=== PATIENT | female | born 1980 | race African-American/Black ===

== ENCOUNTER 2016-03-24 17:56 | Emergency (ER) | payer SELFPAY ==
[2016-03-24] MEDS ORDERED: ONDANSETRON 4 MG TAB.RAPDIS PO ONE (18:22)
--- NOTE | 2016-03-24 18:22 | ER Document Report ---
ED Medical Screen (RME) - General Chief Complaint: Abdominal Pain Stated Complaint: ABDOMINAL PAIN,VOMITING,DIARRHEA Time seen by provider: 18:21 Mode of Arrival: Ambulatory Information source: Patient Notes: 35-year-old female presents to ED for nausea vomiting and diarrhea or since this morning. She states just the smell of food makes her sick. She is sipping on a Sprite and keeping that down. Last menstrual period 03/15/2016 I have greeted and performed a rapid initial assessment of this patient. A comprehensive ED assessment and evaluation of the patient, analysis of test results and completion of medical decision making process will be conducted by an additional ED providers. TRAVEL OUTSIDE OF THE [place] IN LAST 30 DAYS: No - Related Data Allergies/Adverse Reactions: Sulfa (Sulfonamide Antibiotics) Adverse Reaction (Unknown, Verified 02/20/16 13: 48) Past Medical History Pulmonary Medical History: Reports: Hx Asthma Psychiatric Medical History: Reports: Hx Depression Past Surgical History: Reports: Hx Abdominal Surgery - hernia repair, Hx Umbilical Hernia - Immunizations Immunizations up to date: Yes Hx Diphtheria, Pertussis, Tetanus Vaccination: Yes Physical Exam - Vital signs Vitals: Temp Pulse Resp BP Pulse Ox 98.8 F 90 18 145/89 H 100 03/24/16 18:17 03/24/16 18:17 03/24/16 18:17 03/24/16 18:17 03/24/16 18:17 Course - Vital Signs Vital signs: Temp Pulse Resp BP Pulse Ox 98.8 F 90 18 145/89 H 100 03/24/16 18:17 03/24/16 18:17 03/24/16 18:17 03/24/16 18:17 03/24/16 18:17
[2016-03-24 19:51] LABS: ABSOLUTE BASOPHILS # (AUTO) 0.1 10^3/uL (0.0-0.2); ABSOLUTE EOSINOPHILS # (AUTO) 0.1 10^3/uL (0.0-0.6); ABSOLUTE MONOCYTES (AUTO) 0.9 10^3/uL (0.1-1.4); ABSOLUTE NEUT (AUTO) 9.8 10^3/uL (1.7-8.2); BASOPHILS % (AUTO) 0.4 % (0-2); EOSINOPHILS % (AUTO) 0.5 % (0-6); HEMATOCRIT 40.9 % (36.0-47.0); HEMOGLOBIN 12.4 g/dL (12.0-15.5); HGB HCT DIFFERENCE -3.7; LYMPHOCYTES % (AUTO) 21.8 % (13-45); MEAN CORPUSCULAR HEMOGLOBIN 23.1 pg (27.0-33.4); MEAN CORPUSCULAR HGB CONC 30.2 g/dL (32.0-36.0); MEAN CORPUSCULAR VOLUME 77 fl (80-97); MONOCYTES % (AUTO) 6.2 % (3-13); RED BLOOD COUNT 5.35 10^6/uL (3.72-5.28); RED CELL DISTRIBUTION WIDTH 14.1 % (11.5-14.0); SEGMENTED NEUTROPHILS % (AUTO) 71.1 % (42-78); WHITE BLOOD COUNT 13.7 10^3/uL (4.0-10.5)
[2016-03-24 19:58] LABS: APPEARANCE,URINE SLIGHTLY-CLOUDY; BILIRUBIN,URINE NEGATIVE (NEGATIVE); GLUCOSE, URINE NEGATIVE (NEGATIVE); KETONES,URINE NEGATIVE (NEGATIVE); LEUKOCYTE ESTERASE,URINE SMALL (NEGATIVE); NITRITE,URINE NEGATIVE (NEGATIVE); PROTEIN,URINE 30 mg/dL (NEGATIVE); URINE SPECIFIC GRAVITY 1.026
[2016-03-24 20:15] LABS: ALANINE AMINOTRANSFERASE 40 U/L (9-52); ALBUMIN 4.7 g/dL (3.5-5.0); ALKALINE PHOSPHATASE 72 U/L (38-126); ANION GAP 13 (5-19); ASPARTATE AMINO TRANSFERASE 21 U/L (14-36); BILIRUBIN,TOTAL 0.9 mg/dL (0.2-1.3); BLOOD UREA NITROGEN 10 mg/dL (7-20); CALCIUM 9.8 mg/dL (8.4-10.2); CARBON DIOXIDE 25 mmol/L (22-30); CHLORIDE 104 mmol/L (98-107); CREATININE RESULT 0.78 mg/dL (0.52-1.25); GLUCOSE 106 mg/dL (75-110); SODIUM 141.5 mmol/L (137-145); TOTAL PROTEIN 7.9 g/dL (6.3-8.2)
[2016-03-24] MEDS ORDERED: HYDROCODONE/ACETAMINOPHEN 5-325 MG 6 TAB/DSPK PO PRN (21:50)
[2016-03-24] MEDS ORDERED: PROMETHAZINE HCL 25 MG TABLET PO ONE (21:50)
[2016-03-24 21:52] VITALS: BP 140/76
--- NOTE | 2016-03-24 21:53 | ER Document Report ---
ED GI/ - General Chief Complaint: Abdominal Pain Stated Complaint: ABDOMINAL PAIN,VOMITING,DIARRHEA Time seen by provider: 21:45 Mode of Arrival: Ambulatory Notes: Patient is a 35-year-old female that comes emergency department for chief complaint of nausea, vomiting, and diarrhea starting today. She states she has had diarrhea almost every 30 minutes. Patient states the Zofran from triage helped some but she still vomited, states that Zofran never helps her very much. She denies any specific areas of abdominal pain. She states she is worried she might be but she did have a cycle within the past 4 weeks. Patient has had an umbilical hernia repair, denies any other abdominal surgeries or medical problems. TRAVEL OUTSIDE OF THE [place] IN LAST 30 DAYS: No - Related Data Allergies/Adverse Reactions: Sulfa (Sulfonamide Antibiotics) Adverse Reaction (Unknown, Verified 02/20/16 13: 48) Past Medical History - General Information source: Patient - Social History Smoking Status: Current Every Day Smoker Frequency of alcohol use: None Drug Abuse: None Lives with: Family Family History: Arthritis, DM, Hypertension, Malignancy, Thyroid Disfunction Patient has suicidal ideation: No Patient has homicidal ideation: No Pulmonary Medical History: Reports: Hx Asthma Renal/ Medical History: Denies: Hx Peritoneal Dialysis Psychiatric Medical History: Reports: Hx Depression Past Surgical History: Reports: Hx Abdominal Surgery - hernia repair, Hx Umbilical Hernia - Immunizations Immunizations up to date: Yes Hx Diphtheria, Pertussis, Tetanus Vaccination: Yes Review of Systems - Review of Systems Constitutional: See HPI EENT: No symptoms reported Cardiovascular: No symptoms reported Respiratory: No symptoms reported Gastrointestinal: See HPI Genitourinary: No symptoms reported Female Genitourinary: No symptoms reported Musculoskeletal: No symptoms reported Skin: No symptoms reported Hematologic/Lymphatic: No symptoms reported Neurological/Psychological: No symptoms reported Physical Exam - Vital signs Vitals: Temp Pulse Resp BP Pulse Ox 98.8 F 90 18 145/89 H 100 03/24/16 18:17 03/24/16 18:17 03/24/16 18:17 03/24/16 18:17 03/24/16 18:17 Interpretation: Normal - General General appearance: Appears well, Alert In distress: None - HEENT Head: Normocephalic, Atraumatic Eyes: Normal Conjunctiva: Normal Extraocular movements intact: Yes Eyelashes: Normal Pupils: PERRL Ears: Normal External canal: Normal Tympanic membrane: Normal Sinus: Normal Nasal: Normal Mouth/Lips: Normal Mucous membranes: Normal Pharynx: Normal Neck: Normal - Respiratory Respiratory status: No respiratory distress Chest status: Nontender Breath sounds: Normal. No: Decreased air movement, Wheezing Chest palpation: Normal - Cardiovascular Rhythm: Regular. No: Tachycardia Heart sounds: Normal auscultation, S1 appreciated, S2 appreciated Murmur: No - Abdominal Inspection: Normal Distension: No distension Bowel sounds: Normal Tenderness: Tender - Very mild generalized abdominal tenderness, nonspecific, no guarding Organomegaly: No organomegaly - Back Back: Normal, Nontender. 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 Patient declines any further evaluation and workup. I feel this is appropriate, patient 's workup, symptoms, and examination are most consistent with a viral syndrome, no concerning vital signs or examination findings. Patient instructed to take the nausea medication, rehydrate, follow-up with primary care, and return if she worsens. Patient states understanding and agreement. - Vital Signs Vital signs: Temp Pulse Resp BP Pulse Ox 98.3 F 73 16 140/76 H 100 03/24/16 21:51 03/24/16 21:51 03/24/16 21:51 03/24/16 21:51 03/24/16 21:51 - Laboratory Result Diagrams: 03/24/16 19:35 03/24/16 19:35 Laboratory results interpreted by me: 03/24/16 03/24/16 19:35 19:35 WBC 13.7 H RBC 5.35 H MCV 77 L MCH 23.1 L MCHC 30.2 L RDW 14.1 H Absolute Neutrophils 9.8 H Urine Protein 30 H Urine Urobilinogen 2.0 H Ur Leukocyte Esterase SMALL H Discharge - Discharge Clinical Impression: Nausea vomiting and diarrhea Abdominal pain Qualifiers: Abdominal location: generalized Qualified Code(s): R10.84 - Generalized abdominal pain Condition: Stable Disposition: HOME, SELF-CARE Additional Instructions: Take Phenergan for nausea, drink plenty of fluids, rest. Your laboratory workup, examination, and symptoms are most consistent with a viral illness which should run its course. Follow-up with primary care. Return to the emergency department for any concerning or worsening symptoms including uncontrollable vomiting, severe abdominal pain, etc. Prescriptions: Promethazine HCl [Phenergan 25 mg Tablet] 1 - 2 tab PO Q6H PRN #20 tablet PRN Reason: Forms: Return to Work
== END 2016-03-24 22:01 | disposition home or self-care (01) ==
LOC: ER 17:56
DX: R11.2 Nausea with vomiting, unspecified (principal); R19.7 Diarrhea, unspecified; R10.84 Generalized abdominal pain; F17.200 Nicotine dependence, unspecified, uncomplicated; Z88.2 Allergy status to sulfonamides
CPT/HCPCS: 99284; 36415; 84703; 85025; 80053; 81001; S0119

== ENCOUNTER 2016-04-02 19:31 | Emergency (ER) | payer SELFPAY ==
[2016-04-02] MEDS ORDERED: OXYCODONE-ACETAMINOPHEN 5-325 MG TABLET PO ONE (20:57)
[2016-04-02] MEDS ORDERED: ONDANSETRON 4 MG TAB.RAPDIS PO ONE (20:57)
[2016-04-02] MEDS ORDERED: CLINDAMYCIN HCL 150 MG CAPSULE PO ONE (20:57)
--- NOTE | 2016-04-02 21:01 | ER Document Report ---
ED Medical Screen (RME) - General Chief Complaint: Swelling of Tongue Stated Complaint: TONGUE SWELLING Notes: 35-year-old female that comes emergency department for chief complaint of tongue swelling for 2 days. No sore throat, difficulty swallowing, neck swelling or pain. No fever. Patient has a tongue piercing. Patient unable to remove the piercing. TRAVEL OUTSIDE OF THE [place] IN LAST 30 DAYS: No - Related Data Allergies/Adverse Reactions: Sulfa (Sulfonamide Antibiotics) Adverse Reaction (Unknown, Verified 02/20/16 13: 48) Home Medications: Current Home Medications No Home Medications 04/02/16 [History] Past Medical History - Social History Chew tobacco use (# tins/day): No Frequency of alcohol use: None Drug Abuse: None Pulmonary Medical History: Reports: Hx Asthma Renal/ Medical History: Denies: Hx Peritoneal Dialysis Psychiatric Medical History: Reports: Hx Depression Past Surgical History: Reports: Hx Abdominal Surgery - hernia repair, Hx Umbilical Hernia - Immunizations Immunizations up to date: Yes Hx Diphtheria, Pertussis, Tetanus Vaccination: Yes Physical Exam - Vital signs Vitals: Temp Pulse Resp BP 97.9 F 60 18 135/86 H 04/02/16 20:36 04/02/16 20:36 04/02/16 20:36 04/02/16 20:36 - HEENT Mouth/Lips: Other - Erythema, swelling, and tenderness to the anterior aspect of the tongue, around the area where a current piercing is in place Course - Re-evaluation Re-evalutation: Consistent with infected tongue piercing, unfortunately the horizontal bar cannot be removed easily because on the right side the bar appears to have been pulled into the swelling and there is an area of skin that is already over the area. - Vital Signs Vital signs: Temp Pulse Resp BP Pulse Ox 97.9 F 60 18 135/86 H 04/02/16 20:36 04/02/16 20:36 04/02/16 20:36 04/02/16 20:36
[2016-04-03] MEDS ORDERED: MIDAZOLAM 2 MG/2 ML INJ IV ONE (02:49)
[2016-04-03] MEDS ORDERED: FENTANYL CITRATE INJ/PF 100 MCG/2 ML AMPUL IV ONE (02:49)
--- NOTE | 2016-04-03 02:52 | ER Document Report ---
ED General - General Chief Complaint: Swelling of Tongue Stated Complaint: TONGUE SWELLING Notes: Patient is a 35-year-old female presents for complaints of a swollen tongue. She has a piercing in her the tip of her tongue that was placed in December. She says she started nose tongue swelling 2 days ago. Says it has continued be swollen. She never had a rash. She is not on any new medications. She does not taking medications on a regular basis. She said no fevers. No other complaints at this time. TRAVEL OUTSIDE OF THE [place] IN LAST 30 DAYS: No - Related Data Allergies/Adverse Reactions: Sulfa (Sulfonamide Antibiotics) Adverse Reaction (Unknown, Verified 02/20/16 13: 48) Past Medical History - Social History Smoking Status: Current Every Day Smoker Chew tobacco use (# tins/day): No Frequency of alcohol use: None Drug Abuse: None Family History: Arthritis, DM, Hypertension, Malignancy, Thyroid Disfunction Patient has suicidal ideation: No Patient has homicidal ideation: No Pulmonary Medical History: Reports: Hx Asthma Renal/ Medical History: Denies: Hx Peritoneal Dialysis Psychiatric Medical History: Reports: Hx Depression Past Surgical History: Reports: Hx Abdominal Surgery - hernia repair, Hx Umbilical Hernia - Immunizations Immunizations up to date: Yes Hx Diphtheria, Pertussis, Tetanus Vaccination: Yes Review of Systems - Review of Systems Notes: My Normal Review Basic REVIEW OF SYSTEMS: CONSTITUTIONAL : Denies fever, chills, or sweats. Denies recent illness. EENT: No swelling RESPIRATORY: Denies cough, cold, or chest congestion. Denies shortness of breath, difficulty breathing, or wheezing. GASTROINTESTINAL: Denies abdominal pain. Denies nausea, vomiting, or diarrhea. Denies constipation. Last BM: MUSCULOSKELETAL: Denies neck or back pain or joint pain or swelling. SKIN: Denies rash or skin lesions. NEUROLOGICAL: Denies altered mental status or loss of consciousness. Denies headache. Denies weakness or paralysis or loss of use of either side. Denies problems with gait or speech. Denies sensory or motor loss. ALL OTHER SYSTEMS REVIEWED AND NEGATIVE. Physical Exam - Vital signs Vitals: Temp Pulse Resp BP 97.9 F 60 18 135/86 H 04/02/16 20:36 04/02/16 20:36 04/02/16 20:36 04/02/16 20:36 - Notes Notes: General Appearance: Well nourished, alert, cooperative, no acute distress, no obvious discomfort. Vitals: reviewed, See vital signs table. Head: no swelling or tenderness to the head Eyes: PERRL, EOMI, Conjuctiva clear Mouth: Some mild swelling to the tip of the tongue. The swelling has embedded the right side of the tongue piercing. Throat: No tonsillar inflammation, No airway obstruction, No lymphadenopathy Neck: Supple, no neck tenderness, No thyromegaly Lungs: No wheezing, No rales, No rhonci, No accessory muscle use, good air exchange bilaterally. Heart: Normal rate, Regular rythm, No murmur, no rub Extremities: strength 5/5 in all extremities, good pulses in all extremities, no swelling or tenderness in the extremities, no edema. Skin: warm, dry, appropriate color, no rash Neuro: speech clear, oriented x 3, normal affect, responds appropriately to questions. Course - Vital Signs Vital signs: Temp Pulse Resp BP Pulse Ox 97.9 F 60 14 132/73 H 99 04/02/16 20:36 04/03/16 05:10 04/03/16 05:10 04/03/16 05:10 04/03/16 05:10 - Transfer of Care Notes: 04/03/16 08:27 Patient did have some small amount of tongue swelling. Thinks is related to the piercing it was in place. I was able to remove the piercing. I did have to give the patient some Versed for anxiolysis which did help. Patient was watched for approximately an hour after the piercing was removed. She had no further bleeding. Tongue looks well. No increased swelling. Swelling of tongue is mild. I will place her on antibiotics. I encourage her to return to ER she feels like she has increased swelling or tongue, difficulty breathing, difficulty swallowing, or feels unwell. Patient initially tells that she would have a ride home if we gave her the Versed. Patient later was unable to get a ride home. She did agree to call [employer] to bring her home. I informed her that she cannot drive after receiving the Versed. At time of discharge patient was up and walking without difficulties. She was awake and alert. She was answering all questions appropriately without slurring her words. Dictation of this chart was performed using voice recognition software; therefore, there may be some unintended grammatical errors. Discharge - Discharge Clinical Impression: Tongue swelling Foreign body of tongue Qualifiers: Encounter type: initial encounter Qualified Code(s): S00.552A - Superficial foreign body of oral cavity, initial encounter Condition: Good Disposition: HOME, SELF-CARE Additional Instructions: Please return to the ER immediately if you have increased swelling of your tongue, difficulty breathing, fevers, or feel unwell. Please take antibiotics as prescribed. Prescriptions: Clindamycin HCl 300 mg PO ASDIR #56 capsule Forms: Return to Work
[2016-04-03] MEDS ORDERED: MIDAZOLAM 2 MG/2 ML INJ ONE (03:21)
[2016-04-03 05:16] VITALS: BP 132/73
== END 2016-04-03 05:17 | disposition home or self-care (01) ==
LOC: ER 19:31
DX: S00.552A Superficial foreign body of oral cavity, initial encounter (principal); R22.0 Localized swelling, mass and lump, head; F17.210 Nicotine dependence, cigarettes, uncomplicated; X58.XXXA Exposure to other specified factors, initial encounter
CPT/HCPCS: 99283; 96374; J2250; S0119; J3010

== ENCOUNTER 2017-08-28 19:30 | Emergency (ER) | payer OTHER, BC ==
[2017-08-28] MEDS ORDERED: IBUPROFEN 800 MG TABLET PO ONE (21:43)
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
[2017-08-28 22:09] VITALS: BP 130/88
== END 2017-08-28 22:06 | disposition home or self-care (01) ==
LOC: ER 19:30
DX: R05 Cough (principal); R51 Headache; F17.200 Nicotine dependence, unspecified, uncomplicated; V40.5XXA Car driver injured in collision with pedestrian or animal in traffic accident, initial encounter; Z88.2 Allergy status to sulfonamides
CPT/HCPCS: 99283